=== PATIENT | male | born 1955 | race African-American/Black ===

== ENCOUNTER 2018-05-15 20:55 | Inpatient (IN) | payer SELFPAY ==
[~2018-05-15 20:55] MED LIST: ISOVUE-370 76%-LOCM 1 ML ONE
--- NOTE | 2018-05-15 21:31 | RAD ---
CHEST ONE VIEW: HISTORY: AV block. Chest pain. COMPARISON: None. FINDINGS: Heart size is markedly enlarged. There are likely some small effusions. No pneumothorax. Nodular density of the left lung apex. IMPRESSION: 1. Marked cardiomegaly and small effusions. 2. Pleural-based density in the left upper lobe may be chronic in nature. Attention on follow-up ex ams is recommended. POS: WILLIE
[2018-05-15 21:53] LABS: #Eosinphils 0.2 thou/uL (0.0-0.7); #Lymphocytes 1.7 thou/uL (1.20-3.40); #Monocytes 0.4 thou/uL (0.11-0.59); #Neutrophils 5.7 thou/uL (1.40-6.50); %Basophils 0.5 % (0.0-1.0); %Eosinophils 2.3 % (0.0-10.0); %Lymphocytes 20.8 % (21.0-51.0); %Monocytes 5.3 % (0.0-10.0); %Neutrophils 71.2 % (42.0-75.0); Hemoglobin 11.7 g/dL (14.0-18.0); Mean Corpuscular HGB CONC 33.3 g/dL (32.0-36.0); Mean Platelet Volume 7.8 fL (7.4-10.4); Platelet Count 171 thou/uL (130-400); Red Blood Cell (RBC) Count 3.33 mill/uL (4.70-6.10)
[2018-05-15] MEDS ORDERED: Sodium Bicarb 50 MEQ/50 ML Abboject 8.4% SYRINGE ONE ×2 (22:00→23:00)
[2018-05-15 22:03] LABS: CKMB 1.9 ng/mL (0-6.6)
[2018-05-15 22:06] LABS: ALT (SGPT) 113 U/L (8-55); AST (SGOT) 150 U/L (5-34); Albumin 3.1 g/dL (3.5-5.0); Alkaline Phosphatase 162 U/L (40-150); Anion Gap 20 mmol/L (10-20); BUN (Urea Nitrogen) 94 mg/dL (8.4-25.7); Bilirubin, Total 1.3 mg/dL (0.2-1.2); Calc. Creatinine Clearance 0 mL/min (70-130); Calcium 7.4 mg/dL (7.8-10.44); Carbon Dioxide 21 mmol/L (22-29); Chloride 102 mmol/L (98-107); Estimated GFR-MDRD 3; Glucose 123 mg/dL (70-105); Protein, Total 5.1 g/dL (6.0-8.3); Sodium 136 mmol/L (136-145)
[2018-05-15 22:10] LABS: Potassium 7.3 mmol/L (3.5-5.1)
--- NOTE | 2018-05-15 22:15 | CT ---
CT ABDOMEN AND PELVIS WITH CONTRAST: HISTORY: Nausea and vomiting. COMPARISON: None. FINDINGS: There is a small right pleural effusion. Mild interstitial and alveolar edema. Heart size is enlarg ed. There is reflux of contrast within the hepatic veins, as well as the suprahepatic IVC and the infrahe patic IVC. Aortic contour is nonaneurysmal. Small volume free fluid in the pelvis. The kidneys are atrophic. The examination is performed like an angiogram due to the poor cardiac output. There is no significa nt visceral enhancement. There is fluid surrounding the pancreatic head and body, as well as some fluid in the juliana hepatis. There is gallbladder wall thickening, likely congestive changes. The appendix is felt to be visualized and appears normal. There is some bowel wall motion of the cec um, which gives it the appearance of a focal area of extraluminal gas, though this is likely artifact ual. No dilated loops of large or small bowel. No intrahepatic or extrahepatic biliary dilatation. IMPRESSION: 1. Marked cardiomegaly with pulmonary edema and small effusion on the right. 2. No significant visceral enhancement due to poor cardiac output, with this exam being performed mo re like an angiogram. There is small volume ascites, as well as some fluid surrounding the pancreati c head and body. Recommend correlation with the patient's liver function tests, as well as amylase a nd lipase, to evaluate for underlying pancreatitis. 3. Proteinaceous cysts of the left kidney. 4. Atrophic bilateral kidneys. 5. Reflux of contrast in the suprahepatic and infrahepatic inferior vena cava, as well as hepatic ve ins, indicating diastolic dysfunction. POS: MEE
[2018-05-15] MEDS ORDERED: Dextrose 50% Abboject 50 ML SYRINGE ONE (22:25)
[2018-05-15] MEDS ORDERED: Insulin Regular 300 UNITS/3 ML VIAL ONE (22:25)
[2018-05-15] MEDS ORDERED: Calcium Chloride 1 GM/10 ML Abboject SYRINGE ONE (22:25)
[2018-05-15 22:29] LABS: CK (CPK) 95 U/L (30-200)
[2018-05-15] MEDS ORDERED: Norepinephrine 8 MG/0.9% NS 250 ML ONE (22:29)
[2018-05-15 22:38] LABS: Magnesium 2.3 mg/dL (1.6-2.6); Phosphorus 8.2 mg/dL (2.3-4.7)
[2018-05-15] MEDS ORDERED: Atropine Sulfate 1 mg/10 ml Syringe ONE (22:39)
[2018-05-15 22:42] LABS: Actual Bicarbonate (HCO3a) 15.8 mEq/L (22-28); CO2 Tension 35.1 mmHg (35.0-45.0); O2 Tension (PaO2) 334.9 mmHg (> 80.0); pH, Arterial 7.27 (7.35-7.45)
[2018-05-15 22:43] LABS: Base Excess (BEa) -10.2 mEq/L (-2.0 to +3.0); Calcium, Ionized 1.4 mmol/L (1.12-1.30); Hematocrit-ABG 35.1 % (42.0-52.0); Hemoglobin (Hb) 10.9 g/dL (14.0-18.0)
[2018-05-15 22:44] LABS: ALV-art Gradient 329.225 (0-20); Analyzer IN Cardio ER; Puncture Site RRA
[2018-05-15] MEDS ORDERED: Piperacillin/Tazobactam 4.5 GM VIAL ONE (23:21)
--- NOTE | 2018-05-15 23:30 | RAD ---
CHEST ONE VIEW: HISTORY: Nausea. Sweating. COMPARISON: Radiograph from same day. FINDINGS: Central venous catheter is in place with the tip in an abnormal position, projecting over the right u pper lobe. There is opacity in the right upper lobe. There is leftward shift of the trachea. IMPRESSION: Abnormal craniad location of the central venous catheter tip with leftward buckling of the trachea, a s well as a new right upper lobe opacity. Recommend evaluating the blood flow within the catheter, t o make sure it is within a venous location. POS: MEE
--- NOTE | 2018-05-16 00:27 | PDOC.FPRHP ---
- History of Present Illness Chief Complaint: feeling bad, diffuse abdominal pain History of Present Illness: Mr. Gamez presented to the ER with complaint of not feeling well since 05/15 at 1700. He is from [place] and is visiting family in town. He had abdominal pain, diaphoresis and didn't feel well overall. Pt reported to nurse that he had cough w/yellow sputum for past 3 weeks. However, family denies any cough this weekend. Deneis fever/chills, diarrhea. History is difficult to obtain from patient. Pt is lethargic, difficult to arouse. ESRD with L arm fistula on HD T//Tue. Last received HD Tuesday, as he planned to spend the weekend here with family. He feels they took off too much fluid at that time. All of his physicians are in [place]. Mr. Gamez desires FULL CODE. He wishes his sister, Shira Bolivra to be is medical decision maker if he is unable. Shira Bolivar: [phone] or [phone] ED Course: CT abdomen, Right IJ on levaphed, hypothermic with bearhugger, CXR, Dr. Wild consulted, fluids, labs - Allergies/Adverse Reactions Allergies Allergy/AdvReac Type Severity Reaction Status Date / Time No Known Drug Allergies Allergy Unverified 05/16/18 00:59 - History PMHx:HTN, ESRD on HD PSHx: R arm fistula FHx:sister-unknown cancer, mother-stroke, father-alzheimers Social:Does not work. No tobacco use. Occasional alcohol and marijuana use. - Review of Systems ROS unobtainable: due to mental status General: reports: other (sweating). denies: fever/chills, weight/appetite/ sleep changes (no appetite change) Gastrointestinal: denies: diarrhea - Vital signs BP: [114/53] HR: [47] RR: [24] Tmax: [96] Pox: []% on [] Wt: [74 kg] - Physical Exam Constitutional: other (Lethargic, difficult to arouse) HEENT: normocephalic and atraumatic, PERRLA, no scleral icterus Neck: supple, trachea midline Heart: other (bradycardic, distant heart sounds) Lungs: no wheezing, other (diffuse rhonchi) Abdomen: other (soft, diffusely TTP) Musculoskeletal: other (squeezes hands and moves feet on command. L arm fistula. ) Neurological: other (unable to obtain neuro exam d/t mental status) Skin: no rash/lesions, good turgor Heme/Lymphatic: no unusual bruising or bleeding FMR H&P: Results - Labs Result Diagrams: 05/15/18 21:32 05/15/18 21:32 Lab results: WBC 8.0 thou/uL (4.8-10.8) 05/15/18 21:32 Hgb 11.7 g/dL (14.0-18.0) L 05/15/18 21:32 Hct 35.1 % (42.0-52.0) L 05/15/18 21:32 MCV 105.0 fL (78.0-98.0) H 05/15/18 21:32 Plt Count 171 thou/uL (130-400) 05/15/18 21:32 Neutrophils % 71.2 % (42.0-75.0) 05/15/18 21:32 ABG pH 7.27 (7.35-7.45) L 05/15/18 22:35 ABG pCO2 35.1 mmHg (35.0-45.0) 05/15/18 22:35 ABG pO2 334.9 mmHg (> 80.0) H 05/15/18 22:35 Sodium 136 mmol/L (136-145) 05/15/18 21:32 Potassium 7.3 mmol/L (3.5-5.1) H* 05/15/18 21:32 Chloride 102 mmol/L (98-107) 05/15/18 21:32 Carbon Dioxide 21 mmol/L (22-29) L 05/15/18 21:32 BUN 94 mg/dL (8.4-25.7) H 05/15/18 21:32 Creatinine 15.03 mg/dL (0.6-1.3) H 05/15/18 21:32 Glucose 123 mg/dL (70-105) H 05/15/18 21:32 Lactic Acid 2.4 mmol/L (0.5-2.2) H 05/15/18 21:32 Calcium 7.4 mg/dL (7.8-10.44) L 05/15/18 21:32 Total Bilirubin 1.3 mg/dL (0.2-1.2) H 05/15/18 21:32 AST 150 U/L (5-34) H 05/15/18 21:32 ALT 113 U/L (8-55) H 05/15/18 21:32 Alkaline Phosphatase 162 U/L (40-150) H 05/15/18 21:32 Creatine Kinase 95 U/L (30-200) 05/15/18 21:32 CK-MB (CK-2) 1.9 ng/mL (0-6.6) 05/15/18 21:32 Serum Total Protein 5.1 g/dL (6.0-8.3) L 05/15/18 21:32 Albumin 3.1 g/dL (3.5-5.0) L 05/15/18 21:32 Lipase 38 U/L (8-78) 05/15/18 21:34 FMR H&P: A/P - Problem List (1) SIRS (systemic inflammatory response syndrome) Current Visit: Yes Status: Acute Code(s): R65.10 - SIRS OF NON-INFECTIOUS ORIGIN W/O ACUTE ORGAN DYSFUNCTION (2) ESRD (end stage renal disease) on dialysis Current Visit: Yes Status: Acute Code(s): N18.6 - END STAGE RENAL DISEASE; Z99.2 - DEPENDENCE ON RENAL DIALYSIS (3) Hypotension Current Visit: Yes Status: Acute (4) Hypothermia Current Visit: Yes Status: Acute Code(s): T68.XXXA - HYPOTHERMIA, INITIAL ENCOUNTER (5) Bradycardia Current Visit: Yes Status: Acute Code(s): R00.1 - BRADYCARDIA, UNSPECIFIED (6) Hyperkalemia Current Visit: Yes Status: Acute Code(s): E87.5 - HYPERKALEMIA (7) Anemia Current Visit: Yes Status: Acute Code(s): D64.9 - ANEMIA, UNSPECIFIED (8) Lactic acidosis Current Visit: Yes Status: Acute Code(s): E87.2 - ACIDOSIS - Plan 62 year old male with ESRD presenting with SIRS and hyperkalemia was admitted to CCU on levophed. 1. SIRS, no known source of infection -Hypothermia: Rectal 96 in ER, on bearhugger -Hypotensive on levophed, goal MAP > 65 -Right IJ in place -s/p 500 mL NS bolus in ED, will await recs from Dr. Wild prior to further fluid administration -zosyn/vanc given in ER (05/15) -will need vanc trough timed pending dialysis plan per Dr. Wild -notify Dr. Smallwood in a.m. -trend lactic acid -ordered procalcitonin, coags, BNP -CXR showed cardiomegaly with no focal infiltrate -BCx pending 2. Hyperkalemia -7.3 on admission -Dr. Wild consulted - emergent HD -Ca gluconate, 10u insulin and glucose given in ER -monitor BMP, next check 0330/post-dialysis 3. Transaminitis -Likely hepatic congestion vs. shock -Hep B ordered by Dr. Wild -trend on CMP -Consider additional hepatitis panel/HIV/RPR if persistent 4. Macrocytic Anemia -will check B12 and folate -Hgb 11.7 -monitor CBC 5. Bradycardia -unknown what patient's baseline is -continue to monitor on tele -consider transcutanous pacing/atropine/dopamine if worsening/symptomatic 6. ESRD on HD T//Sat 12/16 HTN -Last received HD Tuesday (05/12) in [place] -L arm fistula/graft -Dialysis as above per Dr. Wild 7. Hx of HTN -hypotensive at this time -will attempt to obtain med rec in a.m., pharmacy currently closed -restart home meds as appropriate 8. Hyperbilirubinemia -Likely related to transaminitis -Trend -Consider fractionated if persistent/uptrending 9. Hypoalbuminemia/proteinemia -Possibly some component of chronic liver disease -Dietary supplementation and consider albumin infusion if clinically appropriate for volume consideration Ppx: will talk to nephro about heparin in dialysis, no GI ppx indicated at this time FMR H&P: Upper Level - Plan Date/Time: 05/16/18 0017 I, [], have evaluated this patient and agree with findings/plan as outlined by analysis intern resident. Pertinent changes/additions are listed here.
[2018-05-16] MEDS ORDERED: Ondansetron HCl/PF 4 MG/2 ML Vial IVP PRN (01:00)
[2018-05-16] MEDS ORDERED: Acetaminophen 325 MG TAB PO PRN (01:00)
[2018-05-16] MEDS ORDERED: Norepinephrine 8 MG/250 ML BAG IVPB PRN (01:00)
[2018-05-16] MEDS ORDERED: Ondansetron ODT 4 MG TAB SL PRN (01:00)
[2018-05-16 01:17] VITALS: BMI 24.7
--- NOTE | 2018-05-16 01:51 | PDOC.EVN ---
Event Note - Event Note Event Note: Patient seen and examined by me on 05/16/2018 @ 01:15. Case discussed with Dr. Guillermo and history, exam, assessment and plan reviewed and agree with resident' s documentation. Briefly this is a 62 yo BM with h/o ESRD on HD and HTN who presented with acute onset of weakness with associated epsidoe of vomiting and diaphoresis. Patient states that he has been visiting family when symptoms occurred. Has had a cough for 3 weeks productive of green sputum. Denies any fever/chills. (+) abdominal pain but he reports that this has been present for last 3-4 months. Denies any diarrhea or constipation. In ER noted to be hypotensive and hypothermic. Treated with small fluid bolus, warming blankets. PMH/PSH/Meds/All reviewed and agree with resident's documentation. T97.6 P48 BP 134/72 95% RR 14 Exam repeated by me and agree with resident's findings. Labs: WBC=8.0, H/H11.7/35.1, Fe=695, K+=7.3, Ij=846, CO2=21, BUN=94, Cr=15.03, AST= 150, BBQ=186, Alb= 3.1, lipase=38, ABG 7.27/35/334/16 CXR- ?new RUL infiltrate A/P: 1) SIRS - Admit to CCU -Continue pressors and wean as tolerable - Await blood cultures - Continue abx until cultures reviewed - consult pulmonary in AM 2) Hyperkalemia - received calcium in ER - Dr. Wild consulted for emergent dialysis 3) HTN - hold home medications until BP improved
[2018-05-16] MEDS ORDERED: CCU Electrolyte Replacement 1 EACH FS ONE (02:10)
[2018-05-16] MEDS ORDERED: Potassium Phosphate 15 MMOL in Sodium Chloride 0.9% 250 ML 250 ML IV PRN (02:15)
[2018-05-16] MEDS ORDERED: Magnesium 2 GM/NS 0.9% 100 ML 2 GM in Premix Bag 1 BAG IVPB PRN (02:15)
[2018-05-16] MEDS ORDERED: Potassium Chloride 40 MEQ in Premix Bag 1 BAG IVPB PRN (02:15)
[2018-05-16] MEDS ORDERED: Potassium Phosphate 12 MMOL in Sodium Chloride 0.9% 250 ML 250 ML IV PRN (02:15)
[2018-05-16] MEDS ORDERED: Potassium Chloride 20 MEQ TAB PO PRN (02:15)
[2018-05-16] MEDS ORDERED: CCU ELECTROLYTE REPLACEMENT PROTOCOL FS PRN (02:15)
[2018-05-16] MEDS ORDERED: Magnesium Oxide 400 MG TAB PO PRN ×2 (02:15)
[2018-05-16] MEDS ORDERED: Potassium Phosphate 9 MMOL in Sodium Chloride 0.9% 100 ML IVPB PRN (02:15)
[2018-05-16] MEDS ORDERED: Potassium Chloride 40 MEQ in Sodium Chloride 0.9% 250 ML 250 ML IVPB PRN (02:15)
[2018-05-16 02:32] LABS: Lactic Acid 1.4 mmol/L (0.5-2.2)
[2018-05-16 02:55] LABS: HBSAg Index 0.18 S/CO (0-0.99); Hep B Surf Ag Non-Reactive S/CO (NonReactive)
[2018-05-16 07:05] LABS: #Basophils 0.1 thou/uL (0.0-0.2); #Eosinphils 0.2 thou/uL (0.0-0.7); #Lymphocytes 1.4 thou/uL (1.20-3.40); #Monocytes 0.7 thou/uL (0.11-0.59); #Neutrophils 6.1 thou/uL (1.40-6.50); %Basophils 0.6 % (0.0-1.0); %Eosinophils 1.9 % (0.0-10.0); %Lymphocytes 16.6 % (21.0-51.0); %Monocytes 8.7 % (0.0-10.0); %Neutrophils 72.2 % (42.0-75.0); Hemoglobin 11.2 g/dL (14.0-18.0); Mean Corpuscular HGB CONC 33.3 g/dL (32.0-36.0); Mean Corpuscular Hemoglobin 34.5 pg (27.0-31.0); Mean Platelet Volume 7.6 fL (7.4-10.4); Platelet Count 159 thou/uL (130-400); RBC Distribution Width 14.8 % (11.5-14.5); Red Blood Cell (RBC) Count 3.25 mill/uL (4.70-6.10); White Blood Cell (WBC) Count 8.4 thou/uL (4.8-10.8)
[2018-05-16 07:10] LABS: INR-International Normal Ratio 1.2; Prothrombin Time 15.5 SEC (12.0-14.7)
[2018-05-16 07:37] LABS: ALT (SGPT) 141 U/L (8-55); AST (SGOT) 126 U/L (5-34); Albumin 3.3 g/dL (3.5-5.0); Alkaline Phosphatase 156 U/L (40-150); Anion Gap 17 mmol/L (10-20); BUN (Urea Nitrogen) 38 mg/dL (8.4-25.7); Bilirubin, Total 1.2 mg/dL (0.2-1.2); Calc. Creatinine Clearance 11 mL/min (70-130); Calcium 8.5 mg/dL (7.8-10.44); Carbon Dioxide 27 mmol/L (22-29); Chloride 99 mmol/L (98-107); Estimated GFR-MDRD 9; Globulin 2.3 g/dL (2.4-3.5); Glucose 69 mg/dL (70-105); Magnesium 1.8 mg/dL (1.6-2.6); Phosphorus 4.3 mg/dL (2.3-4.7); Potassium 3.8 mmol/L (3.5-5.1); Protein, Total 5.6 g/dL (6.0-8.3); Sodium 139 mmol/L (136-145)
--- NOTE | 2018-05-16 08:29 | CON ---
DATE OF CONSULTATION: 05/16/2018 Following encompassed 70 minutes of time. Of that time, greater than 50% of the time was spent with the patient and/or on the patient's unit in the hospital CONSULTING PHYSICIAN: [facility]. REASON FOR CONSULTATION: Sepsis. HISTORY OF PRESENT ILLNESS: The patient is a pleasant 62-year-old male who is visiting this area [place], [place]. He has been on dialysis for several years. He usually has dialysis on , , and Tuesday. In anticipation of the trip here, he was dialyzed Tuesday in [facility]. Apparently too much fluid may have been taken off of that time. He was sitting outside yesterday and all of sudden felt cold and broke out into a sweat. He subseque ntly presented here, he was initially hypotensive, but he was off the Levophed by the time he got to the CCU. He did receive a session of urgent dialysis earlier this morning. He feels better, now has no complaints. PAST MEDICAL HISTORY: 1. Hypertension. 2. End-stage renal disease requiring hemodialysis. PAST SURGICAL HISTORY: He has a left upper arm fistula. FAMILY MEDICAL HISTORY: Remarkable for cancer and stroke. SOCIAL HISTORY: Nonsmoker except for occasional use of marijuana, occasionally drinks alcohol. MEDICATIONS PRIOR TO ADMISSION: Verapamil 240 mg daily extended release, terazosin 5 mg daily, prav astatin 20 mg daily, losartan 100 mg daily, folate, vitamin B complex 1 tablet daily. INPATIENT MEDICATIONS: Tylenol, pneumococcal vaccine, apparently received vancomycin and Zosyn in [facility] emergency room, but neither were listed on his current medications. REVIEW OF SYSTEMS: Twelve point review of systems otherwise negative. PHYSICAL EXAMINATION: VITAL SIGNS: Temperature 97.5, pulse 65, blood pressure 167/79. Currently, off all vasopressors, O2 sat running in the low 90s on room air. HEENT: Pupils react. Sclerae anicteric. Oropharynx is clear. NECK: No JVD. CARDIAC: S1, S2 muffled by 2/6 systolic murmur at the left sternal border. LUNGS: He has a few inspiratory crackles at both bases. ABDOMEN: Soft, nontender, nondistended. EXTREMITIES: No clubbing, cyanosis, or edema. He has a left upper arm fistula with palpable thrill. LABORATORY DATA AND X-RAY FINDINGS: Sodium 139, potassium 3.8, chloride 99, CO2 27, BUN 38, creatini ne 7.4, glucose 69. AST 126, ALT 141, alkaline phosphatase 156, albumin 3.3, pH 7.27, pCO2 of 35, pO 2 of 334, that was last night. White blood cell count 8.4, hematocrit 33.8, platelet count 159. ASSESSMENT: 1. Rule out sepsis. The patient presents with hypotension, which was corrected by the time he came to the floor. Of note, he had severe electrolyte imbalance as when he came in with a potassium of 7. 3, BUN 94, and creatinine 15. This would indicate that he has probably been noncompliant with dialys is. In reviewing his case, the only possible source I see is his chest. He has a subtle infiltrate in the right upper lobe and he has a slight cough. 2. End-stage renal disease requiring dialysis. 3. Hyperkalemia that has been corrected after a session of dialysis. 4. History of hypertension. PLAN: 1. His central line is apparently not working and cannot be flushed, therefore it needs to be discon tinued and he could probably managed alone with a peripheral IV. 2. Agree with echocardiogram to rule out pericardial effusion. 3. Reinitiate IV Zosyn. Vancomycin might be considered also. We need to do this until cultures hav e come back negative at 48 hours. 4. The patient is stable for transfer to telemetry today.
[2018-05-16] MEDS ORDERED: Prevnar 13-Val Conj/PF 0.5 ML SYRINGE IM ONE (09:00)
[2018-05-16] MEDS: Piperacillin/Tazobactam 2.25 GM in Sodium Chloride 0.9% 100 ML IVPB SCH ×2 (09:02→21:18)
[2018-05-16 10:25] LABS: Folate (Folic Acid) 7.3 ng/mL (7.0-31.4)
--- NOTE | 2018-05-16 10:25 | CON ---
DATE OF CONSULTATION: 05/16/2018 REASON FOR CONSULTATION: Hyperkalemia. HISTORY OF PRESENT ILLNESS: This is a very pleasant 62-year-old gentleman who presented to the [facility] and was hypothermic and septic with a potassium of 7.2 and I was consulted. The patient denies h eadache, numbness, tingling or weakness. Denies any nausea, vomiting or chest pain. PAST MEDICAL HISTORY: Hypertension, end-stage renal disease, AV fistula, history of tunneled dialysi s catheter. SOCIAL HISTORY: No alcohol use. FAMILY HISTORY: Negative for ESRD. ALLERGIES: Reviewed. REVIEW OF SYSTEMS: Unobtainable, the patient was confused. HOME MEDICATIONS: List reviewed. PHYSICAL EXAMINATION: GENERAL: Patient is awake, alert. VITAL SIGNS: Afebrile, pulse 78, breathing 16, blood pressure 144/75. OBJECTIVE: See above. Awake, alert, in no acute distress. GENERAL APPEARANCE AND MENTAL STATUS: Fair. HEAD/NECK: Normocephalic. Atraumatic. EYES: EOMI. No deformity. EARS: Clear. No ulcers. NOSE: Intact. No lesions. MOUTH: Clear. No discharge. THROAT: Clear. No exudate. LUNGS: Clear. No crackles. CARDIAC: S1, S2. No rub. ABDOMEN: Benign. BS+. GENITALIA/RECTUM: Vasquez absent. BACK/EXTREMITIES: Edema 0+ Ulcer- NEUROLOGICAL: The patient is very somnolent. SKIN: Rash- Bruise- LYMPHATICS: Edema- Ulcer- LABORATORY: Potassium 7.2. ASSESSMENT AND PLAN: 1. Stage 6 chronic kidney disease, plan urgent hemodialysis. 2. Hypertension, stable. 3. Hyperkalemia. Plan dialysis. 4. Medications based on glomerular filtration rate are appropriate.
[2018-05-16] MEDS ORDERED: Simvastatin 5 MG TAB PO SCH (21:00)
[2018-05-17 04:52] LABS: #Basophils 0.1 thou/uL (0.0-0.2); #Eosinphils 0.8 thou/uL (0.0-0.7); #Lymphocytes 1.6 thou/uL (1.20-3.40); #Monocytes 0.8 thou/uL (0.11-0.59); #Neutrophils 4.6 thou/uL (1.40-6.50); %Basophils 1.4 % (0.0-1.0); %Eosinophils 9.6 % (0.0-10.0); %Monocytes 9.8 % (0.0-10.0); %Neutrophils 59.2 % (42.0-75.0); Hemoglobin 10.3 g/dL (14.0-18.0); Mean Corpuscular HGB CONC 33.1 g/dL (32.0-36.0); Mean Corpuscular Hemoglobin 35.1 pg (27.0-31.0); Mean Platelet Volume 8.2 fL (7.4-10.4); Platelet Count 161 thou/uL (130-400); RBC Distribution Width 15.5 % (11.5-14.5); Red Blood Cell (RBC) Count 2.93 mill/uL (4.70-6.10); White Blood Cell (WBC) Count 7.8 thou/uL (4.8-10.8)
[2018-05-17 05:17] LABS: ALT (SGPT) 120 U/L (8-55); AST (SGOT) 83 U/L (5-34); Alkaline Phosphatase 118 U/L (40-150); Anion Gap 15 mmol/L (10-20); BUN (Urea Nitrogen) 57 mg/dL (8.4-25.7); Bilirubin, Total 0.7 mg/dL (0.2-1.2); Calc. Creatinine Clearance 7 mL/min (70-130); Carbon Dioxide 25 mmol/L (22-29); Chloride 101 mmol/L (98-107); Estimated GFR-MDRD 5; Globulin 2.1 g/dL (2.4-3.5); Glucose 72 mg/dL (70-105); Protein, Total 5.1 g/dL (6.0-8.3); Sodium 137 mmol/L (136-145)
--- NOTE | 2018-05-17 06:18 | PDOC.FM ---
- Subjective Subjective: 62 yo male seen this AM. Patient has no complaints. This morning he refused dialysis per nursing staff. Patient states he is due for his regular dialysis session in [place] tomorrow morning at 5 AM and would rather return home. He states that he has had no further abdominal pain, chest pain, sob, n/v/d. He denies fevers, chills, or cough. He states he otherwise feels well. He also states he is aware of his reduced EF of his heart and that his why he is on the medications at home. He states that he is ready to go home, but understands waiting for the blood cultures to result at this time. No other complaints this morning. - Objective Vital Signs & Weight: Vital Signs (12 hours) Temp Pulse Resp BP Pulse Ox 05/17/18 04:00 98.6 F 80 17 165/80 H 92 L 05/17/18 00:30 98.4 F 77 17 171/93 H 95 05/16/18 19:05 98.8 F 80 20 158/82 H 94 L Weight Weight 69.672 kg Most Recent Monitor Data Heart Rate from ECG 77 NIBP 156/80 NIBP BP-Mean 98 Respiration from ECG 21 SpO2 93 I&O: 05/15/18 05/16/18 05/17/18 06:59 06:59 06:59 Intake Total 14 420 Output Total 0 Balance 14 420 Result Diagrams: 05/17/18 03:50 05/17/18 03:50 <Kingston Lorenzo - Last Filed: 05/17/18 08:19> - Objective Vital Signs & Weight: Vital Signs (12 hours) Temp Pulse Resp BP BP Pulse Ox 05/17/18 12:36 73 150/72 H 05/17/18 12:20 98.3 F 71 18 150/72 H 96 05/17/18 08:57 76 173/91 H 05/17/18 08:00 98.2 F 76 18 95 05/17/18 07:59 98.2 F 76 18 173/91 H 95 05/17/18 04:00 98.6 F 80 17 165/80 H 92 L Weight Weight 69.672 kg Most Recent Monitor Data Heart Rate from ECG 77 NIBP 156/80 NIBP BP-Mean 98 Respiration from ECG 21 SpO2 93 I&O: 05/16/18 05/17/18 05/18/18 06:59 06:59 06:59 Intake Total 14 420 360 Output Total 0 Balance 14 420 360 Result Diagrams: 05/17/18 03:50 05/17/18 03:50 <NikoleMarilyn - Last Filed: 05/17/18 15:57> Phys Exam - Physical Examination Constitutional: NAD HEENT: PERRLA, moist MMs Neck: no nodes Respiratory: no wheezing, clear to auscultation bilateral Cardiovascular: RRR, no significant murmur Gastrointestinal: soft, non-tender, no distention, positive bowel sounds Musculoskeletal: no edema, pulses present Neurological: non-focal, normal sensation, moves all 4 limbs Lymphatic: no nodes Psychiatric: normal affect, A&O x 3 Skin: no rash <Kingston Lorenzo - Last Filed: 05/17/18 08:19> Dx/Plan (1) ESRD (end stage renal disease) on dialysis Code(s): N18.6 - END STAGE RENAL DISEASE; Z99.2 - DEPENDENCE ON RENAL DIALYSIS Status: Chronic (2) Hyperkalemia Code(s): E87.5 - HYPERKALEMIA Status: Resolved (3) Anemia Code(s): D64.9 - ANEMIA, UNSPECIFIED Status: Chronic (4) Bradycardia Code(s): R00.1 - BRADYCARDIA, UNSPECIFIED Status: Resolved (5) Hypotension Status: Resolved (6) Hypothermia Code(s): T68.XXXA - HYPOTHERMIA, INITIAL ENCOUNTER Status: Resolved (7) Lactic acidosis Code(s): E87.2 - ACIDOSIS Status: Resolved (8) SIRS (systemic inflammatory response syndrome) Code(s): R65.10 - SIRS OF NON-INFECTIOUS ORIGIN W/O ACUTE ORGAN DYSFUNCTION Status: Ruled-out - Plan Plan: 62 year old male with ESRD presenting with SIRS and hyperkalemia was admitted to CCU on levophed. 1. SIRS, no known source of infection - Essentially ruled out, will await 48 hour culture results. - zosyn/vanc given in ER (05/15) - Zosyn continued - Blood cultures pending 2. Hyperkalemia - resolved with HD, 4.0 this AM - Dr. Wild consulted - Dialysis T, Th, Sat - Ca gluconate, 10u insulin and glucose given in ER - 3. Transaminitis - Likely hepatic congestion - Hep B ordered negative - Trending down on CMP 4. Macrocytic Anemia - B12 elevated - Folate low normal, restarted home Folate supplementation. - Hgb 10.3 - monitor CBC 5. Bradycardia - resolved - continue to monitor on tele 6. ESRD on HD //Sat / HTN - Last received HD Tuesday (05/12) in [place] - L arm fistula/graft - Dialysis as above per Dr. Wild - Patient refused dialysis this AM, spoke with Dr. Wild and he is ok with patient being discharged to follow up at home dialysis center. 7. Hx of HTN - Restarted home meds with exception of beta otilia due to fluid overload and concern for CHF - Continue to monitor 8. Hyperbilirubinemia - Likely related to transaminitis - Trending down 9. Hypoalbuminemia/proteinemia - Possibly some component of chronic liver disease - Consistently decreased - Will need outpatient follow up for this. Disposition: Stable, Will await Nephro recommendations prior to discharge. <Kingston Lorenzo - Last Filed: 05/17/18 08:19> Attending Addendum - Attending Addendum Date/Time: 05/17/18 3308 I personally evaluated the patient and discussed the management with Dr. Lorenzo. I agree with the History, Examination, Assessment and Plan documented above with any addition or exceptions noted below. The patient has dialysis set up. He has a chair time tomorrow at 5 a.m. and will be discharged home today. Blood cultures are negative. <Marilyn Agustin - Last Filed: 05/17/18 15:57>
[2018-05-17] MEDS ORDERED: Carvedilol 25 MG TAB PO SCH ×4 (08:45→17:00)
[2018-05-17] MEDS: hydrALAZINE 25 MG TAB PO SCH ×2 (08:57→12:36)
[2018-05-17] MEDS: Piperacillin/Tazobactam 2.25 GM in Sodium Chloride 0.9% 100 ML IVPB SCH (08:58)
[2018-05-17] MEDS ORDERED: Terazosin HCl 5 MG CAP PO SCH (09:00)
[2018-05-17] MEDS ORDERED: Folic Acid/Vit B Comp W-C PO SCH (09:00)
[2018-05-17] MEDS ORDERED: Losartan 25 MG TAB PO SCH (09:00)
--- NOTE | 2018-05-17 12:03 | DIS-2 ---
DATE OF ADMISSION: 05/16/2018 DATE OF DISCHARGE: 05/17/2018 RESIDENT: Dr. Kingston Lorenzo ADMITTING ATTENDING: Dr. Nga Stokes DISCHARGE ATTENDING: Dr. Marilyn Agustin CONSULTATIONS: Nephrology, Dr. Wild and Pulmonology, Dr. Smallwood. PROCEDURES: 1. On 05/15/2018 the patient underwent a chest x-ray that showed marked cardiomegaly and small effus ions, pleural based density in the left upper lobe may be chronic in nature. 2. On 05/15/2018 the patient underwent abdomen and pelvis CT that showed marked cardiomegaly with pu lmonary edema and small effusion on the right. No significant visceral enhancement due to poor cardi ac output, but this exam being performed more like an angiogram. There is small volume ascites as we ll as some fluid surrounding the pancreatic head and body. Proteinaceous cyst of the left kidney. A trophic bilateral kidneys. Reflux of contrast in the suprahepatic and hepatic inferior vena cava as well as hepatic veins indicating diastolic dysfunction. 3. On 05/15/2018 the patient underwent an additional chest x-ray that showed abnormal ____ location of the central venous catheter tip with leftward buckling of the trachea as well as new right upper lobe opacity. Recommend evaluating the blood flow within the catheter to make sure it is within a ve nous location. 4. On 05/16/2018, the patient underwent an echocardiogram that showed an ejection fraction that is v isually estimated at 30-35%. A mildly dilated left atrium and mildly enlarged right atrium. Left ve ntricle size is mildly increased. Moderate mitral regurgitation is present. Moderate tricuspid regu rgitation. PRIMARY DIAGNOSES: 1. End-stage renal disease on dialysis. 2. Hyperkalemia. 3. Anemia. 4. Hypotension. 5. Hypothermia. 6. Lactic acidosis. 7. Systemic inflammatory response syndrome. 8. Bradycardia. DISCHARGE MEDICATIONS: 1. Pravastatin 20 mg p.o. at bedtime. 2. Verapamil 240 mg p.o. daily. 3. Folic acid, Nephro-Kirsty tablet 1 tab p.o. daily. 4. Terazosin 5 mg p.o. daily. 5. Losartan 100 mg p.o. daily. 6. Carvedilol 25 mg p.o. b.i.d. 7. Hydralazine 25 mg p.o. q.i.d. 8. Sevelamer carbonate 800 mg p.o. t.i.d. DISCONTINUED MEDICATIONS: None. HISTORY OF PRESENT ILLNESS AND HOSPITAL COURSE: A 62-year-old male who presents to the ER with compl aint of not feeling well. He is from [place] and visiting family in [facility]. He has had abdominal pain, diaphoresis, and did not feel well overall. The patient reports a cough with yellow sputum for the past 3 weeks, but family denies any cough this weekend. The patient denies any fevers, chills or elizabeth rrhea. The patient is a poor historian. The patient does receive hemodialysis through a left arm fi stula on Tuesday, , Tuesday. He last received hemodialysis on Tuesday as he was planning to spend the weekend here with his family. During this hospitalization, the patient was afebrile, had a normal pulse and normotensive to hyperte nsive blood pressure during hospitalization. He was able to saturate oxygen on his own without any s upplementation. The patient was in the ICU initially, was placed on Levophed drip for approximately 30 minutes. His central venous catheter became nonfunctioning; however, his blood pressure responded without any further supplementation through vasopressors. The patient was then noted to have emerge nt dialysis where they pulled off approximately 3 liters of fluid. The patient also had an echocardi ogram that showed some chronic findings that he was aware of, as far as heart failure. The patient a lso had blood cultures drawn because of his initial presenting picture for systemic inflammatory resp onse syndrome criteria. However, it was determined that this patient did not have an infectious sour ce and through his consistent lab work as well as afebrile and otherwise normal vital signs, the mahad ent will not continue treatment for any infectious source. His blood cultures will be followed up af ter he is discharged from the hospital. The patient otherwise has dialysis set up in town through a private metallurgical engineering technician that he will resume his normal schedule tomorrow for his Tuesday, , and Tuesday schedule. Dr. Wild with Nephrology was consulted. He recommended emergent dialysis, had f luid withdrawn and then recommended repeat dialysis today; however, the patient declined as he would like to return to his regularly scheduled dialysis times and Dr. Wild is in agreement with that plan. Otherwise, the patient had no further complications during this hospitalization and was discharged in appropriate condition. DISPOSITION: Stable. DISCHARGE INSTRUCTIONS: 1. Location: He will be discharged home in the care of himself and his family. 2. Diet will be a renal and heart healthy diet. 3. Activity will be as tolerated with no restrictions. 4. Follow up will be with his primary care provider in 3-7 days to further discuss long-term managem ent of his chronic illnesses.
[2018-05-17 12:22] VITALS: TEMP 98.3
[2018-05-17 12:37] VITALS: BP 150/72
--- NOTE | 2018-05-17 13:14 | PRG ---
DATE OF SERVICE: 05/17/2018 SUBJECTIVE: This is a 62-year-old gentleman being seen for end-stage renal. The patient denies any nausea, vomiting, or chest pain. PHYSICAL EXAMINATION: GENERAL: Patient is awake, alert. VITAL SIGNS: Afebrile, pulse 80, breathing 16, blood pressure 150/72. OBJECTIVE: See above. Awake, alert, in no acute distress. GENERAL APPEARANCE AND MENTAL STATUS: Fair. HEAD/NECK: Normocephalic. Atraumatic. EYES: EOMI. No deformity. EARS: Clear. No ulcers. NOSE: Intact. No lesions. MOUTH: Clear. No discharge. THROAT: Clear. No exudate. LUNGS: Clear. No crackles. CARDIAC: S1, S2. No rub. ABDOMEN: Benign. BS+. GENITALIA/RECTUM: Vaqsuez absent. BACK/EXTREMITIES: Edema 0+ Ulcer- NEUROLOGICAL: Alert and motor intact. SKIN: Rash- Bruise- LYMPHATICS: Edema- Ulcer- LABORATORY: Hemoglobin 10.3, potassium 4.0. ASSESSMENT AND RECOMMENDATIONS: 1. Stage 6 chronic kidney disease. We will plan dialysis today. 2. Hypertension, stable. 3. Anemia, stable. 4. Medication based on glomerular filtration rate are appropriate. The patient will follow up in dialysis Tuesday for dialysis.
== END 2018-05-17 14:05 | disposition home or self-care (01) | DRG 640 ==
LOC: ERS 20:55 → CCU 05-16 00:58 → T4-B 05-16 11:16 → 2NO 05-16 16:19
PROVIDERS: ADMIT Family Medicine; ATTEND Family Medicine
PROC: 5A1D70Z Performance of Urinary Filtration, Intermittent, Less than 6 Hours Per Day (ICD-10-PCS; principal; 2018-05-16)
DX: E87.5 Hyperkalemia (principal); N18.6 End stage renal disease; I12.0 Hypertensive chronic kidney disease with stage 5 chronic kidney disease or end stage renal disease; R65.10 Systemic inflammatory response syndrome (SIRS) of non-infectious origin without acute organ dysfunction; Z99.2 Dependence on renal dialysis; F12.90 Cannabis use, unspecified, uncomplicated; Z79.899 Other long term (current) drug therapy; I95.9 Hypotension, unspecified; Z91.15 Patient's noncompliance with renal dialysis; D64.9 Anemia, unspecified; E87.2 Acidosis; E88.09 Other disorders of plasma-protein metabolism, not elsewhere classified; E80.6 Other disorders of bilirubin metabolism; R00.1 Bradycardia, unspecified; T68.XXXA Hypothermia, initial encounter; I08.1 Rheumatic disorders of both mitral and tricuspid valves
CPT/HCPCS: 36415; 36416; 36556; 71045; 74177; 80053; 82553; 82607; 82746; 82805; 83605; 83690; 83735; 83880; 84100; 84145; 84484; 85025; 85610; 85730; 87040; 87340; 90471; 90670; 93005; 93306; 94760; 96365; 96366; 96368; 96374; 96375; 99292; A4216; G0009; J0461; J1815; J2543; J3370; J7050

== ENCOUNTER 2018-07-17 10:54 | Emergency (ER) | payer MEDICAID ==
[2018-07-17 11:36] LABS: #Basophils 0.1 thou/uL (0.0-0.2); #Eosinphils 1.4 thou/uL (0.0-0.7); #Lymphocytes 1.4 thou/uL (1.20-3.40); #Monocytes 0.5 thou/uL (0.11-0.59); #Neutrophils 4.3 thou/uL (1.40-6.50); %Basophils 0.8 % (0.0-1.0); %Eosinophils 18.4 % (0.0-10.0); %Lymphocytes 18.2 % (21.0-51.0); %Monocytes 5.9 % (0.0-10.0); %Neutrophils 56.7 % (42.0-75.0); Anisocytosis SLIGHT = 6-15 cells (100X) (0-5/hpf); Hemoglobin 10.7 g/dL (14.0-18.0); MDiff Complete? YES; Macrocytosis SLIGHT = 6-15 cells (100X) (0-5/hpf); Mean Corpuscular HGB CONC 33.8 g/dL (32.0-36.0); Mean Corpuscular Hemoglobin 35.8 pg (27.0-31.0); PLT Morphology Comment Appears Decreased; Platelet Count 112 thou/uL (130-400); Poikilocytosis SLIGHT = 6-15 cells (100X) (0-5/hpf); RBC Distribution Width 15.1 % (11.5-14.5); Red Blood Cell (RBC) Count 2.99 mill/uL (4.70-6.10); White Blood Cell (WBC) Count 7.6 thou/uL (4.8-10.8)
[2018-07-17 11:48] LABS: ALT (SGPT) 27 U/L (8-55); AST (SGOT) 23 U/L (5-34); Albumin 3.3 g/dL (3.5-5.0); Alkaline Phosphatase 79 U/L (40-150); Anion Gap 19 mmol/L (10-20); BUN (Urea Nitrogen) 89 mg/dL (8.4-25.7); Bilirubin, Total 0.8 mg/dL (0.2-1.2); CK (CPK) 150 U/L (30-200); Calc. Creatinine Clearance 0 mL/min (70-130); Calcium 8.2 mg/dL (7.8-10.44); Carbon Dioxide 19 mmol/L (22-29); Chloride 105 mmol/L (98-107); Estimated GFR-MDRD 4; Globulin 2.5 g/dL (2.4-3.5); Glucose 100 mg/dL (70-105); Magnesium 2.4 mg/dL (1.6-2.6); Phosphorus 5.4 mg/dL (2.3-4.7); Potassium 5.2 mmol/L (3.5-5.1); Protein, Total 5.8 g/dL (6.0-8.3); Sodium 138 mmol/L (136-145)
--- NOTE | 2018-07-17 11:50 | RAD ---
AP VIEW OF THE CHEST: INDICATION: Evaluate for fluid overload. FINDINGS: There is cardiomegaly with mild pulmonary vascular congestion. No florid airspace edema or pleural e ffusion is grossly evident. Left costophrenic angle is excluded. No pneumothorax is evident. IMPRESSION: Cardiomegaly with mild pulmonary vascular congestion. POS: H
--- NOTE | 2018-07-17 13:13 | CON ---
DATE OF CONSULTATION: 07/17/2018 REASON FOR CONSULTATION: Hyperkalemia. HISTORY OF PRESENT ILLNESS: This is a 62-year-old gentleman who missed dialysis due to a social reas on presented to the hospital with dyspnea and increased swelling and hyperkalemia. The patient denie s any nausea, vomiting or chest pain. The patient denies headache, numbness, tingling or weakness. PAST MEDICAL HISTORY: Hypertension, end-stage renal disease, a history of tunneled dialysis catheter , history of AV fistula. HOME MEDICATIONS: Reviewed. HOSPITAL MEDICATIONS: Reviewed. ALLERGIES: Reviewed. REVIEW OF SYSTEMS: Fifteen point review of systems was performed and negative except all noted above . GENERAL: Weakness- HEAD: Headache- NECK: No swelling or lumps. NOSE: No epistaxis or discharge. EYES: No diplopia or pain. 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 NEUROPSYCHIATIC SYSTEMS: No suicidal ideation. No ideation. SKIN: Denies any rash or ulcer. CONSTITUTIONAL: No fever or chills. PHYSICAL EXAMINATION: GENERAL: Patient is awake, alert. VITAL SIGNS: Afebrile, pulse 70, breathing at 16, blood pressure was 160/70. OBJECTIVE: See above. Awake, alert, in no acute distress. GENERAL APPEARANCE AND MENTAL STATUS: Fair. HEAD/NECK: Normocephalic. Atraumatic. EYES: EOMI. No deformity. EARS: Clear. No ulcers. NOSE: Intact. No lesions. MOUTH: Clear. No discharge. THROAT: Clear. No exudate. LUNGS: Clear. No crackles. CARDIAC: S1, S2. No rub. ABDOMEN: Benign. BS+. GENITALIA/RECTUM: Vasquez absent. BACK/EXTREMITIES: Edema 0+ Ulcer- NEUROLOGICAL: Alert and motor intact. SKIN: Rash- Bruise- LYMPHATICS: Edema- Ulcer- LABORATORY: Potassium 5.3. ASSESSMENT AND RECOMMENDATIONS: 1. Stage 6 chronic kidney disease, plan urgent hemodialysis. 2. Uremia, plan dialysis. 3. Anemia, stable. 4. Hyperkalemia. Plan dialysis. 5. Medications based on glomerular filtration rate are appropriate. 6. Metabolic acidosis. Plan dialysis.
[2018-07-17 14:56] LABS: HBSAg Index 0.23 S/CO (0-0.99); Hep B Surf Ag Non-Reactive S/CO (NonReactive)
== END 2018-07-17 18:32 | disposition home or self-care (01) ==
LOC: ERS 10:54
DX: E87.5 Hyperkalemia (principal); I12.0 Hypertensive chronic kidney disease with stage 5 chronic kidney disease or end stage renal disease; N18.6 End stage renal disease; J81.1 Chronic pulmonary edema; E78.00 Pure hypercholesterolemia, unspecified
CPT/HCPCS: 36415; 71045; 80053; 82550; 83735; 83880; 84100; 85025; 87340; 93005

== ENCOUNTER 2019-09-16 07:26 | Observation (INO) | payer MEDICAID ==
[2019-09-16 09:02] LABS: Mean Corpuscular HGB CONC 31.9 g/dL (32.0-36.0); Mean Corpuscular Hemoglobin 36.2 pg (27.0-31.0); Mean Platelet Volume 8.8 fL (7.4-10.4); Platelet Count 124 thou/uL (130-400); RBC Distribution Width 16.6 % (11.5-14.5); Red Blood Cell (RBC) Count 3.58 mill/uL (4.70-6.10); White Blood Cell (WBC) Count 7.6 thou/uL (4.8-10.8)
[2019-09-16 09:03] LABS: ALT (SGPT) 46 U/L (8-55); AST (SGOT) 36 U/L (5-34); Albumin 3.7 g/dL (3.4-4.8); Alkaline Phosphatase 78 U/L (40-110); Anion Gap 26 mmol/L (10-20); BUN (Urea Nitrogen) 111 mg/dL (8.4-25.7); Bilirubin, Total 0.8 mg/dL (0.2-1.2); Calc. Creatinine Clearance 0 mL/min (70-130); Carbon Dioxide 19 mmol/L (23-31); Chloride 106 mmol/L (98-107); Estimated GFR-MDRD 4; Globulin 2.2 g/dL (2.4-3.5); Glucose 76 mg/dL (80-115); Potassium 6.3 mmol/L (3.5-5.1); Protein, Total 5.9 g/dL (5.8-8.1); Sodium 145 mmol/L (136-145)
[2019-09-16 09:15] LABS: #Eosinphils 0.2 thou/uL (0.0-0.7); #Lymphocytes 1.1 thou/uL (1.20-3.40); #Monocytes 0.6 thou/uL (0.11-0.59); #Neutrophils 5.7 thou/uL (1.40-6.50); %Basophils 0.4 % (0.0-1.0); %Eosinophils 2.2 % (0.0-10.0); %Lymphocytes 14.4 % (21.0-51.0); %Monocytes 8.5 % (0.0-10.0); %Neutrophils 74.5 % (42.0-75.0); Burr Cells SLIGHT = 2-5 cells (100X) (0-1/hpf); MDiff Complete? YES; Macrocytosis MARKED = >30 cells (100X) (0-5/hpf); Platelet Morphology Comment Appears Decreased; Polychromasia SLIGHT = 2-3 cells (100X) (0-2/hpf)
[2019-09-16] MEDS ORDERED: Bisacodyl 5 MG TAB PO PRN (10:08)
[2019-09-16] MEDS ORDERED: Ondansetron PF 4 MG/2 ML Vial IVP PRN (10:08)
[2019-09-16] MEDS ORDERED: HYDROcodone/Acetaminophen 7.5/325 mg Tablet PO PRN (10:08)
[2019-09-16] MEDS ORDERED: Acetaminophen 325 MG TAB PO PRN (10:08)
[2019-09-16] MEDS ORDERED: Calcium Carbonate 500 MG ChewTAB PO PRN (10:08)
[2019-09-16] MEDS ORDERED: HYDROcodone/Acetaminophen 5/325 mg Tablet PO PRN (10:08)
[2019-09-16] MEDS ORDERED: Loperamide HCl 2 MG CAP PO PRN (10:08)
[2019-09-16] MEDS ORDERED: Ondansetron ODT 4 MG TAB PO PRN (10:08)
[2019-09-16] MEDS ORDERED: Labetalol HCl 100 MG/20 ML VIAL SLOW IVP PRN (10:11)
[2019-09-16] MEDS ORDERED: Benzonatate 100 MG CAP PO PRN (10:11)
[2019-09-16] MEDS ORDERED: Melatonin 3 MG TAB PO PRN (10:11)
[2019-09-16] MEDS ORDERED: diphenhydrAMINE 25 MG CAP PO PRN (10:11)
[2019-09-16] MEDS ORDERED: Docusate 100 MG CAP PO PRN (10:11)
[2019-09-16 11:58] LABS: HBSAg Index 0.18 S/CO (0-0.99); Hep B Surf Ag Non-Reactive S/CO (NonReactive)
--- NOTE | 2019-09-16 13:14 | CON ---
DATE OF CONSULTATION: 09/16/2019 SERVICE: Nephrology. REQUESTING PROVIDER: Dr. Jes Beth. REASON FOR CONSULTATION: Hyperkalemia and fluid overload. HISTORY OF PRESENT ILLNESS: A 63-year-old male patient with known history of end-stage renal disease, on hemodialysis TTS, who missed his dialysis due to social event. The patient presented to the ER with worsening shortness of breath. The patient is from [place] and dialyzes at a [facility] there, but he was unable to make adequate arrangements for continuation of treatment as he was planning to come over to [place] for family engagement. He developed worsening shortness of breath and leg swelling, and presented to the ER. Evaluation showed hyperkalemia and shortness of breath. PAST MEDICAL HISTORY: 1. End-stage renal disease, on hemodialysis. 2. Hypertension. 3. BPH. PAST SURGICAL HISTORY: 1. Tunneled dialysis catheter placement. 2. AV fistula creation. FAMILY HISTORY: Significant for hypertension and chronic kidney disease as well as end-stage renal disease. ALLERGIES: NO KNOWN DRUG ALLERGIES REPORTED. HOME MEDICATIONS: The patient is on the following medication, but does not know how much: 1. Clonidine. 2. Hydrochlorothiazide. 3. Carvedilol. 4. Doxazosin. REVIEW OF SYSTEMS: 12-point review of systems performed, was negative other than pertinent positives and negatives included in the history of present illness. PHYSICAL EXAMINATION: VITAL SIGNS: Temperature 97.6, pulse 78, respiratory rate 24, SpO2 of 96% on room air, and blood pressure is 167/99. GENERAL: Healthy-looking male, in mild respiratory distress. Afebrile. Anicteric. Acyanotic. HEENT: Normocephalic, atraumatic. Oral mucosa is moist. NECK: JVD noted. CARDIOVASCULAR: Regular rhythm and rate with normal heart sounds 1 and 2. RESPIRATORY: Fair air entry bilateral, decreased at both bases with scattered crackles. No rhonchi were appreciated. GI: Full, soft, nontender, nondistended with normal bowel sounds. EXTREMITIES: [id number] bilateral leg edema noted. COMPUTER PROGRAMMER ANALYST: Conscious, alert, oriented x3 with appropriate mental status. Cranial nerves 2 through 12 are grossly intact. The patient moves all extremities. PSYCHIATRIC: Normal affect, cooperative with no agitation. DIAGNOSTIC DATA: CBC showed WBC count of 7.6, hemoglobin of 13.0, MCV of 114, platelets of 124. CMP showed sodium 145, potassium 6.3, chloride 106, CO2 of 19, anion gap 26, BUN 111, creatinine 14.83, glucose 76, calcium 8.0, total bilirubin 0.8, AST 36, ALT 46, alkaline phosphatase 78, total protein 5.9, albumin 3.7, and globulin 2.2. Hepatitis B antigen nonreactive. ASSESSMENT: 1. Hyperkalemia: Due to missed hemodialysis. 2. Acute respiratory insufficiency: Due to acute on chronic diastolic heart failure from fluid overload. 3. Acute on chronic diastolic heart failure. 4. Marked fluid overload. 5. End-stage renal disease, on hemodialysis TTS. The patient missed dialysis on Tuesday. He is about 6.5 kg above his dry weight. 6. Metabolic acidosis: Due to missed hemodialysis. PLAN: 1. We will dialyze the patient today for 4 hours with UF as tolerated. We will be using 2K bath to treat hyperkalemia. 2. We will monitor blood pressure postdialysis and adjust antihypertensives to get adequate BP control. We will restart usual antihypertensives once dose could be confirmed. Further treatment as per primary attending. 3. We will plan on dialyzing the patient tomorrow morning. Job ID: [id number]
[2019-09-16] MEDS: hydrALAZINE 25 MG TAB PO SCH ×3 (14:51→20:07)
[2019-09-16] MEDS ORDERED: Sevelamer Carbonate 800 MG TAB PO SCH (15:00)
[2019-09-16 16:41] VITALS: BMI 23.3
--- NOTE | 2019-09-16 16:52 | PDOC.HHP ---
Hospitalist HPI - History of Present Illness Missing HD and volume overload History of Present Illness: 63-year-old gentleman with past medical history of end-stage renal disease on hemodialysis Tuesday//Tuesday and hypertension presents after missing hemodialysis. Patient is visiting from out of town and missed hemodialysis yesterday on a Tuesday appointment secondary to social reasons. Patient presents with general malaise and volume overload. I find the patient in the dialysis suite, he has just finished a full course of dialysis without events. Patient had over 3 L of fluid removed. Patient is feeling much better. Patient has no acute complaints at this time. Patient asking appropriate questions such as how long does he abstain hospital and why does he have an IV. I discussed the case with member of congress in detail. Nephrology recommending another session of hemodialysis tomorrow in a.m., if the patient continues to be stable in improve likely home tomorrow a.m. after hemodialysis. Patient understands this and is cooperative with plan at this time. Hospitalist ROS - Review of Systems All other systems reviewed; all pertinent +/- noted in HPI/Subj - Medication Medications: Active Medications Generic Name Dose Route Start Last Admin Trade Name Freq PRN Reason Stop Dose Admin Hydralazine HCl 25 mg 09/16/19 13:00 09/16/19 14:51 Apresoline PO Not Given QID [facility] Hospitalist History - Past Medical History Source: patient Cardiac: reports: HTN Pulmonary: reports: hypertension Renal/: reports: Chronic renal failure - Past Surgical History Past Surgical History: reports: Other (HD catheter. Left arm HD graft.) - Family History Family History: reports: hypertension - Social History Smoking Status: Unknown if ever smoked Alcohol: reports: Rare Drugs: reports: none Living Situation: With Family Activity level: independent ambulation - Exam General Appearance: NAD, awake alert Eye: PERRL, anicteric sclera ENT: normocephalic atraumatic, no oropharyngeal lesions, moist mucosa Neck: supple, symmetric Heart: RRR, no murmur, no gallops, no rubs Respiratory: CTAB, no wheezes, no rales, no ronchi, normal chest expansion Gastrointestinal: soft, non-tender, non-distended, no guarding, no rigidity Extremities: 2+ LE edema Skin: no lesions, no rashes Neurological: cranial nerve grossly intact, normal sensation to touch, no focal deficits Musculoskeletal: normal strength, no muscle wasting Psychiatric: normal affect, A&O x 3 Hospitalist Results - Labs Result Diagrams: 09/16/19 08:29 09/16/19 07:46 Lab results: WBC 7.6 thou/uL (4.8-10.8) 09/16/19 08:29 Hgb 13.0 g/dL (14.0-18.0) L 09/16/19 08:29 Hct 40.6 % (42.0-52.0) L 09/16/19 08:29 MCV 114.0 fL (78.0-98.0) H 09/16/19 08:29 Plt Count 124 thou/uL (130-400) L 09/16/19 08:29 Neutrophils % 74.5 % (42.0-75.0) 09/16/19 08:29 Sodium 145 mmol/L (136-145) 09/16/19 07:46 Potassium 6.3 mmol/L (3.5-5.1) H 09/16/19 07:46 Chloride 106 mmol/L (98-107) 09/16/19 07:46 Carbon Dioxide 19 mmol/L (23-31) L 09/16/19 07:46 BUN 111 mg/dL (8.4-25.7) H 09/16/19 07:46 Creatinine 14.83 mg/dL (0.7-1.3) H 09/16/19 07:46 Glucose 76 mg/dL (80-115) L 09/16/19 07:46 Calcium 8.0 mg/dL (7.8-10.44) 09/16/19 07:46 Total Bilirubin 0.8 mg/dL (0.2-1.2) 09/16/19 07:46 AST 36 U/L (5-34) H 09/16/19 07:46 ALT 46 U/L (8-55) 09/16/19 07:46 Alkaline Phosphatase 78 U/L (40-110) 09/16/19 07:46 Serum Total Protein 5.9 g/dL (5.8-8.1) 09/16/19 07:46 Albumin 3.7 g/dL (3.4-4.8) 09/16/19 07:46 - Radiology Interpretation Chest x-ray Status: image reviewed by me Hospitalist H&P A/P - Problem (1) BPH (benign prostatic hyperplasia) Code(s): N40.0 - BENIGN PROSTATIC HYPERPLASIA WITHOUT LOWER URINRY TRACT SYMP Status: Acute (2) ESRD (end stage renal disease) on dialysis Code(s): N18.6 - END STAGE RENAL DISEASE; Z99.2 - DEPENDENCE ON RENAL DIALYSIS Status: Chronic (3) Hyperkalemia Code(s): E87.5 - HYPERKALEMIA Status: Resolved - Plan Plan: Plan: Admit to medical unit with telemetry Nephrology consultation, recommendations appreciated hemodialysis completed this afternoon on 09/16/2019 plan for another session of hemodialysis on 09/17/2019 chest x-ray to monitor for volume overload hyperkalemia on admission, will be corrected with hemodialysis no chest pain, shortness of breath, or other acute symptoms at this time with volume overload resume home medications, though he does not know the doses we have doses from prior admission if patient continues to improve likely home tomorrow after hemodialysis blood pressure control Trend troponins AM labs
[2019-09-16] MEDS: Heparin 5,000 UNITS/ML VIAL SC SCH ×2 (17:03→20:07)
--- NOTE | 2019-09-16 17:15 | RAD ---
PORTABLE CHEST: HISTORY: Shortness of breath. FINDINGS: Heart size is enlarged. There are atherosclerotic changes of the aorta. The lungs are clear of infilt rates. No signs of failure. IMPRESSION: Cardiomegaly. POS: MEE
[2019-09-16] MEDS: Sevelamer Carbonate 800 MG TAB PO SCH (18:07)
[2019-09-16 18:15] LABS: Troponin I 0.053 ng/mL (< 0.028)
[2019-09-16] MEDS: Carvedilol 25 MG TAB PO SCH (20:07)
[2019-09-16 20:37] LABS: Troponin I 0.077 ng/mL (< 0.028)
[2019-09-16] MEDS ORDERED: Famotidine 20 MG TAB PO SCH (21:00)
[2019-09-16] MEDS ORDERED: Pravastatin Sodium 20 MG TAB PO SCH (21:00)
[2019-09-16] MEDS ORDERED: Simvastatin 5 MG TAB PO SCH (21:00)
[2019-09-16] MEDS ORDERED: clonazePAM 0.5 MG TAB PO PRN (21:40)
[2019-09-17 02:26] LABS: Troponin I 0.048 ng/mL (< 0.028)
[2019-09-17 02:30] LABS: Anion Gap 19 mmol/L (10-20); BUN (Urea Nitrogen) 59 mg/dL (8.4-25.7); Calc. Creatinine Clearance 8 mL/min (70-130); Calcium 7.3 mg/dL (7.8-10.44); Carbon Dioxide 24 mmol/L (23-31); Chloride 104 mmol/L (98-107); Estimated GFR-MDRD 7; Glucose 92 mg/dL (80-115); Potassium 4.5 mmol/L (3.5-5.1); Sodium 142 mmol/L (136-145)
[2019-09-17] MEDS ORDERED: Losartan 25 MG TAB PO SCH (09:00)
[2019-09-17] MEDS ORDERED: VERAPAMIL HCL 240 MG PO SCH (09:00)
[2019-09-17] MEDS ORDERED: Doxycycline 100 MG CAP PO SCH (09:00)
[2019-09-17] MEDS ORDERED: Non-Formulary Item 1 EACH (Losartan Potassium [Losartan Potassium] 100 MG) PO SCH (09:00)
[2019-09-17] MEDS ORDERED: cloNIDine 0.1 MG TAB PO SCH (09:00)
[2019-09-17] MEDS ORDERED: Folic Acid/Vit B Comp W-C PO SCH (09:00)
[2019-09-17] MEDS ORDERED: Terazosin HCl 5 MG CAP PO SCH (09:00)
[2019-09-17] MEDS: Sevelamer Carbonate 800 MG TAB PO SCH ×2 (09:53→12:00)
[2019-09-17] MEDS: hydrALAZINE 25 MG TAB PO SCH ×2 (12:01→12:07)
[2019-09-17] MEDS: Carvedilol 25 MG TAB PO SCH (12:01)
[2019-09-17] MEDS: Heparin 5,000 UNITS/ML VIAL SC SCH (12:02)
[2019-09-17 12:07] VITALS: TEMP 98.5
[2019-09-17 13:01] VITALS: BP 180/91
[2019-09-17] MEDS ORDERED: Famotidine 20 MG TAB PO SCH (21:00)
--- NOTE | 2019-09-18 02:56 | DIS ---
DATE OF ADMISSION: 09/16/2019 DATE OF DISCHARGE: 09/17/2019 REASON FOR HOSPITALIZATION: Missed hemodialysis. SIGNIFICANT FINDINGS: The patient found to be uremic and malignant hypertension secondary to missing hemodialysis. PROCEDURES PERFORMED AND TREATMENTS RENDERED: The patient was admitted to medical unit with telemetry and seen and evaluated by Nephrology. Please see full consultation and progress notes for details. Nephrology recommending two sessions of hemodialysis, one was completed on 09/16/2019 on day of admission, and the second was completed on 09/17/2019. Both of these rounds of hemodialysis were completed without complications and the patient's symptoms resolved. The patient had appropriate blood work without significant abnormalities. The patient having significantly elevated renal function, which is as expected for missing hemodialysis. The patient was found to have elevated troponins, though these downtrended. The patient at no point had any chest pain or discomfort. Troponins likely elevated to impaired renal clearance. The patient was recommended safe for discharge by Nephrology on 09/17/2019. CONDITION ON DISCHARGE: Stable. SPECIFIC INSTRUCTIONS FOR THE PATIENT/FAMILY: 1. The patient is recommended to follow up with hemodialysis in the outpatient clinic on his regular Tuesdays//Tuesday regimen from here on after. 2. The patient is recommended to take all medications as directed, to be re-evaluated by primary care physician and Nephrology in the outpatient clinic in the next 1 to 2 weeks. 3. The patient is recommended to follow up with primary care physician in the next 5 to 7 days. 4. The patient is recommended to follow up with splitting machine tender in the next 1 to 2 days. 5. The patient is recommended to return to acute care hospital immediately if signs or symptoms return, worsen, or any other new symptoms occur. DISCHARGE MEDICATIONS: 1. Sevelamer 800 mg one tablet p.o. t.i.d. 2. Folic acid/vitamin-B complex one tablet p.o. daily. 3. Clonidine 0.1 mg one tablet p.o. t.i.d. p.r.n. elevated blood pressure. 4. Carvedilol 25 mg one tablet p.o. b.i.d. 5. Terazosin 5 mg one tablet p.o. daily. 6. Doxycycline 100 mg one tablet p.o. b.i.d. 7. Verapamil 240 mg one tablet p.o. daily. 8. Hydralazine 25 mg one tablet p.o. t.i.d. 9. Losartan 100 mg one tablet p.o. daily. Greater than 33 minutes spent coordinating care and discharge process for this patient. Job ID: [id number]
== END 2019-09-17 13:01 | disposition home or self-care (01) ==
LOC: ERS 07:26 → 2SW 10:14
PROVIDERS: ADMIT Internal Medicine; ATTEND Internal Medicine
DX: E87.5 Hyperkalemia (principal); E87.70 Fluid overload, unspecified; I13.2 Hypertensive heart and chronic kidney disease with heart failure and with stage 5 chronic kidney disease, or end stage renal disease; N18.6 End stage renal disease; I50.33 Acute on chronic diastolic (congestive) heart failure; N40.0 Benign prostatic hyperplasia without lower urinary tract symptoms; E87.2 Acidosis; Z79.899 Other long term (current) drug therapy; Z99.2 Dependence on renal dialysis
CPT/HCPCS: 36415; 71045; 80048; 80053; 84484; 85025; 87340; 90935; 93005; 96372; G0257; G0378; J1644

== ENCOUNTER 2022-11-13 15:04 | Emergency (ER) | payer MEDICAID | END 2022-11-13 17:10 | disposition home or self-care (01) | LOC: ERS 15:04 | DX: L03.116 Cellulitis of left lower limb (principal); E78.00 Pure hypercholesterolemia, unspecified; I12.0 Hypertensive chronic kidney disease with stage 5 chronic kidney disease or end stage renal disease; N18.6 End stage renal disease; Z99.2 Dependence on renal dialysis ==

== ENCOUNTER 2024-05-12 03:05 | Emergency (ER) | payer OTHER, SELFPAY ==
[2024-05-12] MEDS ORDERED: cloNIDine 0.1 MG TAB ONE (04:11)
[2024-05-12] MEDS ORDERED: hydrALAZINE 10 MG TAB ONE (04:11)
== END 2024-05-12 04:32 ==
LOC: ERS 03:05 → EEVIPCON 03:05 → ERS 04:32
DX: I13.2 Hypertensive heart and chronic kidney disease with heart failure and with stage 5 chronic kidney disease, or end stage renal disease (principal); I50.9 Heart failure, unspecified; N18.6 End stage renal disease; Z99.2 Dependence on renal dialysis
CPT/HCPCS: 99283